=== PATIENT | female | born 1975 | race Caucasian/White ===

== ENCOUNTER 2019-09-19 21:59 | Outpatient (REF) | payer SELFPAY ==
[2019-09-19 19:50] LABS: ALT 119 U/L (14-59); Anion Gap 10.9 mmol/L (3-11); BUN 12 mg/dL (7-18); CO2 25.1 mmol/L (21.0-32.0); CREATININE 0.66 mg/dL (0.55-1.02); Calcium 8.9 mg/dL (8.5-10.1); Chloride 104 mmol/L (98-107); Glucose 167 mg/dL (74-106); LDL CHOLESTEROL 135 mg/dL (<100); Potassium 4.2 mmol/L (3.5-5.1); Sodium 140 mmol/L (136-145)
== END 2019-09-19 22:19 ==
LOC: NCHCN 21:59
PROVIDERS: PCP Internal Medicine; Visit Provider Internal Medicine
DX: E11.65 Type 2 diabetes mellitus with hyperglycemia (principal); E78.5 Hyperlipidemia, unspecified
CPT/HCPCS: 80048; 83721; 83036; 84460

== ENCOUNTER 2019-12-29 19:14 | Outpatient (REF) | payer OTHER, SELFPAY ==
[2019-12-29 20:09] LABS: Iron 41 ug/dL (50-170); Total Iron Binding Capacity 250 ug/dL (250-450); Transferrin Sat 16 % (15-50)
[2019-12-29 20:39] LABS: ALT 126 U/L (14-59); AST 68 U/L (15-37); Albumin 3.4 g/dL (3.4-5.0); Alkaline Phosphatase 161 U/L (46-116); Bilirubin, Direct 0.09 mg/dL (0.00-0.20); Bilirubin, Total 0.3 mg/dL (0.2-1.0); Total Protein 7.2 g/dL (6.4-8.2)
[2019-12-29 21:16] LABS: Ferritin 74 ng/mL (8-252)
[2020-01-01 16:02] LABS: Smooth Muscle Ab Screen Negative (Negative)
[2020-01-01 18:10] LABS: Mitochondrial Ab, M2 <0.1 U
[2020-01-02 12:57] LABS: Hepatitis B Surface Ag Negative (Negative); Hepatitis C Ab w Rflx HCV PCR Negative (Negative)
[2020-01-21 17:57] LABS: ANA Interpretation 0.2 U (Negative)
== END 2019-12-29 19:34 ==
LOC: NCHCN 19:14
PROVIDERS: PCP Internal Medicine; Visit Provider Internal Medicine
DX: K75.81 Nonalcoholic steatohepatitis (NASH) (principal); E66.9 Obesity, unspecified; I10 Essential (primary) hypertension
CPT/HCPCS: 80076; 83516; 86803; 87340; 82728; 83540; 83550; 86038; 86255

== ENCOUNTER 2020-06-23 16:20 | Outpatient (REF) | payer OTHER, SELFPAY ==
[2020-06-23 20:47] LABS: COMMENT (LAB VIEW ONLY) 257.29 mg/dL; Microalb ug/mg Crea 17.8 ug/mg Cr
== END 2020-06-23 16:21 | disposition home or self-care (01) ==
LOC: NCHCN 16:20
PROVIDERS: PCP Internal Medicine; Visit Provider Physician Assistant
DX: E11.65 Type 2 diabetes mellitus with hyperglycemia (principal)
CPT/HCPCS: 82043; 82570

== ENCOUNTER 2020-09-23 15:15 | Outpatient (REF) | payer OTHER, SELFPAY ==
--- NOTE | 2020-09-23 14:30 | PAPFT_PTH ---
PATIENT: Rossi Delgado LOC: [facility] U#:[id number] AGE/SX: 45/F ROOM: RE09/23/[address]: Gina House : 1975 BED: DIS: 09/23/2020 SPEC #: [id number] RECD: 09/23/20 18:25 STATUS: JUANITA REScot #: [id number] VISH: 09/23/20 14:[address]: Gina House DEPT: [facility] Cytology RECD BY: Rica Mariscal ENTERED: 09/23/20 18:25 SP TYPE: PAPFT OTHR DR: Joe Luis Tissues: 1 - CX/ENDOCX FOR PAP SMEARS Procedures: PAP THIN PREP/[facility] Screening HPV DNA PROBE Comments: [id number]
== END 2020-09-23 15:16 | disposition home or self-care (01) ==
LOC: NCHCN 15:15
PROVIDERS: PCP Internal Medicine; Visit Provider Physician Assistant
DX: Z12.4 Encounter for screening for malignant neoplasm of cervix (principal); Z01.419 Encounter for gynecological examination (general) (routine) without abnormal findings; Z11.51 Encounter for screening for human papillomavirus (HPV)
CPT/HCPCS: 88142; 87624

== ENCOUNTER 2021-05-11 16:27 | Outpatient (REF) | payer OTHER, SELFPAY ==
[2021-05-11 21:49] LABS: COMMENT (LAB VIEW ONLY) 104.01 mg/dL
[2021-05-11 21:56] LABS: ALT 67 U/L (14-59); AST 40 U/L (15-37); Albumin 3.7 g/dL (3.4-5.0); Alkaline Phosphatase 146 U/L (46-116); Anion Gap 8.1 mmol/L (3-11); BUN 16 mg/dL (7-18); Bilirubin, Total 0.2 mg/dL (0.2-1.0); CO2 28.9 mmol/L (21.0-32.0); Calcium 8.9 mg/dL (8.5-10.1); Chloride 104 mmol/L (98-107); Glucose 116 mg/dL (74-106); Potassium 3.8 mmol/L (3.5-5.1); Sodium 141 mmol/L (136-145); Total Protein 7.5 g/dL (6.4-8.2)
== END 2021-05-11 16:28 | disposition home or self-care (01) ==
LOC: NCHCN 16:27
PROVIDERS: PCP Internal Medicine; Visit Provider Physician Assistant
DX: E11.65 Type 2 diabetes mellitus with hyperglycemia (principal)
CPT/HCPCS: 80053; 82043; 82570

== ENCOUNTER 2021-12-12 13:20 | Outpatient (REF) | payer OTHER, SELFPAY ==
[2021-12-12 20:09] LABS: Bacteria Few HPF (Negative); C & S Indicated? C&S Done As Ordered; Crystals Few Amorphous HPF (Negative); Epithelial Cells Rare HPF (Negative); Mucus Negative (Negative); Other Cells Few Transitional (Negative)
== END 2021-12-12 13:21 | disposition home or self-care (01) ==
LOC: NCHCN 13:20
PROVIDERS: PCP Internal Medicine; Visit Provider Internal Medicine
DX: R30.0 Dysuria (principal); E11.9 Type 2 diabetes mellitus without complications
CPT/HCPCS: 87077; 81015; 87086

== ENCOUNTER → 2022-01-04 02:13 | Outpatient (CLI) | payer OTHER, SELFPAY ==
--- NOTE | 2022-01-04 | DI.MRI_ITS ---
Exam(s) MR LUMBAR SPINE WO EXAM: MR LUMBAR SPINE WO CLINICAL HISTORY: DISC DISEASE M51.36 RADICULOPATHY M54.16 LUMBAGO W/ SCIATICA RT SIDE M54.41. TECHNIQUE: Multiplanar multisequence MRI of the Lumbar spine was performed. COMPARISON: No exams were available for comparison FINDINGS: Bones: The last intervertebral disc space is designated the L5/S1 level for the numbering purpose of this examination. The vertebral body heights are well maintained. Alignment is satisfactory. Mild d egenerative endplate signal changes are seen in the visualized lower thoracic and lumbar spine. Cord: The conus tip ends at the T12 level. It is of normal size and signal intensity. T12-L1: No disc herniations or bulges are present. No central spinal canal or neural foraminal stenos is. L1-2: No disc herniations or bulges are present. No central spinal canal or neural foraminal stenosis . L2-3: No disc herniations or bulges are present. No central spinal canal or neural foraminal stenosis . L3-4: There is a small right paracentral disc herniation. No central spinal canal or neural foramina l stenosis. L4-5: There is a disc herniation with extrusion posterior to the L5 vertebral body. There are degene rative changes of the facets. These all contribute to cause [id number] central spinal canal st enosis. There does appear to be mild right lateral recess stenosis probably compressing the right L5 nerve root. No significant neural foraminal stenosis is present. L5-S1: There is a central disc herniation. There are degenerative changes of the facets. These all contribute to cause wpke-ij-[id number] narrowing of the central spinal canal. No significant neural fo raminal stenosis is present. Soft tissues: The visualized SI joints and sacrum are well maintained. The paraspinal soft tissues ar e unremarkable. Visualized abdominal organs: Note is made of a 1.2 cm simple cyst in the right kidney. IMPRESSION: 1. L4-5 disc herniation with extrusion causing mild right lateral recess stenosis probably compressin g the right L5 nerve root. 2. Central disc herniation at L5-S1 which, in conjunction with the degenerative changes, causes mild- to-moderate central spinal canal stenosis. 3. Small right paracentral disc herniation at L3-L4 without evidence of central spinal canal or neura l foraminal stenosis. 4. Luza-sn-qbidcpbl central spinal canal stenosis at L4-5. DATA REPOSITORY:
== END ==
PROVIDERS: PCP Internal Medicine; Visit Provider Physician Assistant
DX: M51.16 Intervertebral disc disorders with radiculopathy, lumbar region; M48.061 Spinal stenosis, lumbar region without neurogenic claudication; M47.817 Spondylosis without myelopathy or radiculopathy, lumbosacral region; M54.41 Lumbago with sciatica, right side
CPT/HCPCS: 72148

== ENCOUNTER 2022-03-31 16:33 | Outpatient (REF) | payer BC, SELFPAY ==
[2022-03-31 19:24] LABS: Abs Immature Grans 0.02 10^3/uL (0.0-0.06); Absolute Basophil Count 0.06 10^3/uL (0.0-0.2); Absolute Eosinophil Count 0.36 10^3/uL (0.0-0.7); Absolute Lymphocyte Count 4.26 10^3/uL (1.2-3.4); Absolute Monocyte Count 0.87 10^3/uL (0.1-0.8); Absolute Neutrophil Count 5.08 10^3/uL (1.2-6.7); Basophils % 0.6; Eosinophils % 3.4; HCT 46.4 % (36.0-46.0); Immature Grans % 0.2; MCH 28.7 pg (27.0-33.0); MCHC 32.3 % (32.0-36.0); MCV 89 fL (80-95); MPV 12.3 fL (8.0-11.0); Monocytes % 8.2; Neutrophils % 47.6; Platelet Count 276 10^3/uL (130-400); RBC 5.23 10^6/uL (3.93-5.22); RDW 14.2 % (11.7-14.6); WBC 10.65 10^3/uL (4.4-10.8)
[2022-03-31 19:41] LABS: ALT 80 U/L (14-59); AST 55 U/L (15-37); Albumin 3.8 g/dL (3.4-5.0); Alkaline Phosphatase 153 U/L (46-116); BUN 13 mg/dL (7-18); Bilirubin, Total 0.2 mg/dL (0.2-1.0); CREATININE 0.9 mg/dL (0.55-1.02); Calcium 9.1 mg/dL (8.5-10.1); Chloride 105 mmol/L (98-107); Estimated GFR 80.84 (mL/min/1.73m2); Glucose 134 mg/dL (74-106); LDL CHOLESTEROL 142 mg/dL (<100); Potassium 3.9 mmol/L (3.5-5.1); Sodium 141 mmol/L (136-145)
[2022-03-31 20:26] LABS: COMMENT (LAB VIEW ONLY) 84.01 mg/dL; Microalb ug/mg Crea 26.4 ug/mg Cr
== END 2022-03-31 16:34 | disposition home or self-care (01) ==
LOC: NCHCN 16:33
PROVIDERS: PCP Internal Medicine; Visit Provider Physician Assistant
DX: K75.81 Nonalcoholic steatohepatitis (NASH) (principal)
CPT/HCPCS: 80053; 83721; 82043; 82570; 85025

== ENCOUNTER 2022-06-01 01:45 | Outpatient (CLI) | payer BC, SELFPAY ==
--- NOTE | 2022-06-01 09:15 | DI.NM_ITS ---
APPROVED REPORT Exam: Pharmacologic Patient Location: Out-Patient Room/Bed: Stress Nurse: Marie Meyer RN Ordering Provider:PANDA GILL, Contact Number: BMI: 41.14 Baseline Rhythm: Sinus Rhythm Comment: Resting T wave abnormalities Indications: History of chest pain s/p covid Medical History Medical History: Covid Cardiac Medications: Metoprolol, rosuvastatin, aspirin Allergies: Penicillin, cephalosporin, sulfa, lavender Cardiac Risk Factors: Family hx, diabetes, HLD, obesity Previous Cardiac Procedures: None Pretest Chest Pain Characteristics: None Exercise History: Sedentary Physical Disabilities: Back Lung Sounds: Clear to auscultation Heart Sounds: Regular, distant Stress Test Details Test: Pharmacologic stress was paired with low level exercise. Reason for pharmacologic stress test: physical limitation, metoprolol unable to be held, low restin g HR. Nuclear Acquisition: Rest Tc-99m/Stress Tc-99m 1 day Rest Isotope: Tc-99m Sestamibi. Dose: 12.0 Date: 06/01/2022 Injection Time: 0915 Stress Isotope: Tc-99m Sestamibi. Dose: 37.0 Date: 06/01/2022 Injection Time: 1121 HR Resting HR Supine: 65 bpm Max Heart Rate (APMHR): 176.041794 bpm Resting HR Standin bpm Target HR (85% APMHR): 149.602139 bpm Max HR Achieved: 118 bpm % of APMHR: 67.05 Recovery HR: 86 bpm BP Resting BP Supine: 110/72 mmHg Resting BP Standin/78 mmHg Max BP: 118/72 mmHg Recovery BP: 112/72 mmHg ECG Resting ECG: Sinus Rhythm, nonspecific ST-T abnormalities Ectopy: None Stress ECG: Sinus Rhythm, nonspecific ST-T abnormalities ST Change: Nondiagnostic resting ST abnormalities Arrhythmia: None Recovery ECG: Sinus Rhythm, nonspecific ST-T abnormalities Recovery ST Change: Nondiagnostic resting ST abnormalities Recovery Arrhythmia: None Clinical Stress Symptoms: None Angina Score: None Rate Pressure Product: [id number] Stress ECG Conclusion 1. The resting electrocardiogram showed nondiagnostic ST T abnormalities 2. Patient underwent testing using a combination of low-level exercise and pharmacologic stress with regadenoson 3. Peak heart rate achieved was 67% of predicted for age 4. The electrocardiographic portion of the test was nondiagnostic 5. See MPI report Stress Test Summary STAGE HR BP SpO2 Symptoms NOTES Supine 65 110/72 98 Standing 73 112/78 98 1 min post Lexiscan injection 112 112/78 3 min post Lexiscan injection 105 118/72 6 min post Lexiscan injection 83 112/72 MPI Conclusion Myocardial perfusion is normal. There is no ischemia or evidence of prior infarction EF is 69%. Wall motion is normal Radiologist Interpretation Radiologist Interpretation by: Joe Hayden MD Interpretation Date/Time: 06/02/2022 17:04:35
[2022-06-01] MEDS: Regadenoson 0.4 MG/5 ML SYR IVP (11:53)
== END 2022-06-01 02:05 ==
LOC: DI 01:57
PROVIDERS: PCP Internal Medicine; Visit Provider Physician Assistant
DX: R07.89 Other chest pain (principal); U07.1 COVID-19
CPT/HCPCS: 78452; 93017; J2785

== ENCOUNTER 2023-02-01 16:16 | Outpatient (REF) | payer OTHER, SELFPAY ==
[2023-02-01 20:17] LABS: Abs Immature Grans 0.02 10^3/uL (0.0-0.06); Absolute Basophil Count 0.07 10^3/uL (0.0-0.2); Absolute Eosinophil Count 0.27 10^3/uL (0.0-0.7); Absolute Lymphocyte Count 4.54 10^3/uL (1.2-3.4); Absolute Monocyte Count 0.97 10^3/uL (0.1-0.8); Absolute Neutrophil Count 5.71 10^3/uL (1.2-6.7); Basophils % 0.6; Eosinophils % 2.3; HCT 46.2 % (36.0-46.0); Immature Grans % 0.2; Lymphocytes % 39.2; MCH 28.9 pg (27.0-33.0); MCHC 32.5 % (32.0-36.0); MCV 89 fL (80-95); MPV 12.1 fL (8.0-11.0); Monocytes % 8.4; Neutrophils % 49.3; Platelet Count 247 10^3/uL (130-400); RBC 5.19 10^6/uL (3.93-5.22); RDW 14.1 % (11.7-14.6); RDW-SD 45.9 fL; WBC 11.58 10^3/uL (4.4-10.8)
[2023-02-01 20:26] LABS: ALT 87 U/L (14-59); AST 70 U/L (15-37); Albumin 3.7 g/dL (3.4-5.0); Alkaline Phosphatase 134 U/L (46-116); BUN 14 mg/dL (7-18); Bilirubin, Total 0.3 mg/dL (0.2-1.0); CREATININE 1.1 mg/dL (0.55-1.02); Calcium 9.5 mg/dL (8.5-10.1); Chloride 106 mmol/L (98-107); Estimated GFR 63.15 (mL/min/1.73m2); Glucose 97 mg/dL (74-106); Potassium 4.2 mmol/L (3.5-5.1); Sodium 145 mmol/L (136-145); Total Protein 7.9 g/dL (6.4-8.2)
[2023-02-01 20:32] LABS: Hemoglobin A1C 7.2 % (<5.7)
[2023-02-01 20:34] LABS: COMMENT (LAB VIEW ONLY) 165.29 mg/dL; Microalb ug/mg Crea 16.1 ug/mg Cr
== END 2023-02-01 16:17 | disposition home or self-care (01) ==
LOC: NCHCN 16:16
PROVIDERS: PCP Internal Medicine; Visit Provider Physician Assistant
DX: E11.319 Type 2 diabetes mellitus with unspecified diabetic retinopathy without macular edema (principal)
CPT/HCPCS: 80053; 82043; 82570; 83036; 85025

== ENCOUNTER 2024-08-06 22:17 | Outpatient (REF) | payer BC, SELFPAY ==
[2024-08-06 21:46] LABS: Abs Immature Grans 0.03 10^3/uL (0.0-0.06); Absolute Basophil Count 0.05 10^3/uL (0.0-0.2); Absolute Eosinophil Count 0.48 10^3/uL (0.0-0.7); Absolute Lymphocyte Count 3.53 10^3/uL (1.2-3.4); Absolute Monocyte Count 0.85 10^3/uL (0.1-0.8); Basophils % 0.5 %; Eosinophils % 4.7 %; HCT 44.5 % (36.0-46.0); HGB 14.5 g/dL (11.2-15.7); Immature Grans % 0.3 %; Lymphocytes % 34.8 %; MCH 29.7 pg (27.0-33.0); MCHC 32.6 % (32.0-36.0); MCV 91 fL (80-95); MPV 12.5 fL (8.0-11.0); Monocytes % 8.4 %; Neutrophils % 51.3 %; Platelet Count 230 10^3/uL (130-400); RBC 4.89 10^6/uL (3.93-5.22); RDW 13.4 % (11.7-14.6); RDW-SD 45.1 fL; WBC 10.14 10^3/uL (4.4-10.8)
[2024-08-06 22:14] LABS: ALT 47 U/L (14-59); AST 30 U/L (15-37); Albumin 3.8 g/dL (3.4-5.0); Alkaline Phosphatase 129 U/L (46-116); Anion Gap 6.2 mmol/L (3-11); BUN 12 mg/dL (7-18); Bilirubin, Total 0.3 mg/dL (0.2-1.0); CO2 30.8 mmol/L (21.0-32.0); CREATININE 0.9 mg/dL (0.55-1.02); Calcium 9.1 mg/dL (8.5-10.1); Chloride 106 mmol/L (98-107); Estimated GFR 79.35 (mL/min/1.73m2); Glucose 129 mg/dL (74-106); Potassium 3.8 mmol/L (3.5-5.1); Sodium 143 mmol/L (136-145); Total Protein 7.5 g/dL (6.4-8.2)
== END 2024-08-06 22:18 | disposition home or self-care (01) ==
LOC: NCHCN 22:17
PROVIDERS: PCP Physician Assistant; Visit Provider Physician Assistant
DX: K75.81 Nonalcoholic steatohepatitis (NASH) (principal)
CPT/HCPCS: 80053; 85025